=== PATIENT | female | born 1960 | race Caucasian/White ===

== ENCOUNTER 2019-03-12 15:14 | Inpatient (IN) | payer BC ==
[~2019-03-12] VITALS: Ht 165.1 cm; Wt 63.0 kg
[~2019-03-12 15:14] MED LIST: CIPROFLOXACIN500 M2 ORAL; RELPAX40 MG PO
[2019-03-13] VITALS (36 sets, daily range): BP systolic 94–149; BP diastolic 54–92
--- NOTE | 2019-03-13 01:50 | NUR ---
NURSE NOTES: Received report and pt from the charge nurse MARLEE Garcia. Pt's direct admit to ICU from [facility], here to f/up with Dr. Jaime. Pt had abdominal pain, s/[place] landa [place] [address] Jaime. Pt's AOx4. Denies any other concerns/complaints at this time. In no acute distress, Afebrile. Noted Afib on monitor technician. Hr 106, BP 110/84, R16, SpO2 97% on RA. Pt refused hx of afib or cardiac problems. NGT left nare connected to low continuous suction, draining brown gastric content. NPO at this time. Bilateral chest clear. Abdomen soft, minimal tenderness, noted RLQ ileostomy stoma red, no discharge. No hannah noted. Left AC 20G intact, clamped at this time. HOB kept elevated. Bed in low and locked position. Paged for orders, awaiting for call back. Will continue to monitor.
--- NOTE | 2019-03-13 02:10 | NUR ---
NURSE NOTES: Pt's resting in bed, in no acute distress, stable VS. Dr Jaime called back for orders, all noted and carried out. Will continue to monitor.
--- NOTE | 2019-03-13 04:00 | NUR ---
NURSE NOTES: Pt's resting in bed, in no acute distress. VS stable. Asleep. Will continue to monitor.
[2019-03-13] MEDS ORDERED: DiphenhydrAMINE 50mg/ml Inj IVP PRN (04:30)
[2019-03-13] MEDS ORDERED: SUMAtriptan 100mg tab ORAL PRN (04:30)
[2019-03-13 05:18] LABS: HEMATOCRIT 42.6 % (37.0-47.0); HEMOGLOBIN 14.3 G/DL (12.0-16.0); MEAN CORPUSCULAR VOLUME 92 FL (80-99); PLATELET COUNT 211 K/UL (150-450); RED BLOOD COUNT 4.65 M/UL (4.20-5.40); RED CELL DISTRIBUTION WIDTH 11.2 % (11.6-14.8); WHITE BLOOD COUNT 9.6 K/UL (4.8-10.8)
[2019-03-13] MEDS: D5 1/2NS w/KCl 20mEq 1,000 ML IV SCH ×2 (05:22→14:55)
[2019-03-13 05:36] LABS: INR 1.1 (0.9-1.1)
[2019-03-13 05:50] LABS: ALANINE AMINOTRANSFERASE 57 U/L (12-78); ALBUMIN 3.1 G/DL (3.4-5.0); ALBUMIN/GLOBULIN RATIO 0.8 (1.0-2.7); ALKALINE PHOSPHATASE 73 U/L (46-116); ANION GAP 4 mmol/L (5-15); ASPARTATE AMINO TRANSFERASE 30 U/L (15-37); BILIRUBIN,TOTAL 0.7 MG/DL (0.2-1.0); BLOOD UREA NITROGEN 7 mg/dL (7-18); CARBON DIOXIDE 31 MMOL/L (21-32); CHLORIDE 105 MMOL/L (98-107); CREATININE 0.7 MG/DL (0.55-1.30); POTASSIUM 3.5 MMOL/L (3.5-5.1); SODIUM 140 MMOL/L (136-145)
--- NOTE | 2019-03-13 06:53 | General Progress Note ---
Progress Note Progress Note H&P to be dictated. Patient with past history of Ulcerative Colitis has previously undergone proctocolectomy and Kock pouch, with revision here in 2014. ON 03/09 she ate apples and pecans and on 03/10 had bowel obstruction. Admitted to [facility] and treated with NG tube. Her cramping has resolved but very little output when she intubates her Kock pouch Afebrile Abdomen soft, only slightly distended, mild left sided tenderness ( she has had pain there intermittently for 1 year), no guarding or rebound Labs all satisfactory except albumin 3.1 EKG - afib with rapid response - no prior history per patient or from [facility] I inserted a 28 Awan into Kock pouch to continuous gravity drainage - small amount enteric fluid present Imp. 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 Temple called discussed with him Defer Kock Pouch Pouchogram XRay until afib dealt with No indication for acute surgical intervention at this time Mykel Jaime MD Mar 13, 2019 06:53
[2019-03-13] MEDS ORDERED: Digoxin 0.5mg/2ml Inj IVP ONE ×3 (07:00→10:00)
--- NOTE | 2019-03-13 07:00 | NUR ---
NURSE NOTES: Dr. Jaime at the bed side and inserted the cath for the landa pouch. Draining by gravity. Pt's stable condition. Will continue to monitor.
[2019-03-13] MEDS ORDERED: Heparin1,000 units/500ml Premix(Conc:2 units/ml) IV ONE (07:15)
[2019-03-13] MEDS ORDERED: Heparin 5000 units/ml inj IV ONE (07:15)
--- NOTE | 2019-03-13 07:20 | NUR ---
NURSE NOTES: Pt received from MARLEE Garcia in stable condition without cardiopulmonary distress noted. Pt is awake in bed, AAOx4 on RA spO2 98-99%, PERRLA +, obeys commands and opens eyes spontaneously. Pt noted Afib on rail director with HR 95-110 bpm, denies CP or SOB at this time. Bilateral radial pulses and dorsalis pedis palpable 2+ cap refill< 3 sec. Pt is currently NPO with NGT noted in Left nare to intermediate-high intermittent suction. Pt has a BCIR pouch noted in right lower abd quadrant connected to drainage bag by gravity draining dark green liquid stool. The stoma appears red without notable drainage at this time, covered with gauze. Bowel sounds active on all quadrants. Pt states she will use call light for bedpan when she feels the urge to void- no urine noted at this time. Skin is intact, small (7 cm) abd scar noted from previous peoctocolectomy-kock pouch revision surgery. Pt has a LAC 20g IV running D5 1/2 NS w/ 20 mEQ KCL at 100cc/hr. Bed is in lowest position, alarm on, side rails up x 2, call light within reach. Will continue to monitor pt.
--- NOTE | 2019-03-13 07:20 | NUR ---
HAND-OFF: Report given to MARLEE Smith.
[2019-03-13] MEDS ORDERED: Heparin 25,000u/D5W 500ml 500 ML IV SCH ×3 (07:30→17:30)
[2019-03-13] MEDS: SUMAtriptan 6mg/0.5ml Inj SUBQ PRN (08:05)
--- NOTE | 2019-03-13 09:15 | NUR ---
NURSE NOTES: LFA IV noted leaking. Multiple attempts to start a new IV. Addendum: 03/13/19 at 1014 by Sarah Shin RN Amendment: OMKAR not LFA
--- NOTE | 2019-03-13 09:38 | NUR ---
NURSE NOTES: New IV started in RFA 20g. Heparin drip initiated.
[2019-03-13] MEDS: Pantoprazole Inj IVP SCH (09:40)
--- NOTE | 2019-03-13 10:20 | NUR ---
NURSE NOTES: at bedside w/pt. Pt in no acute distress. Pt remains in Afib on monitor car operator with rate of 93. Denies CP or palpitations at this time.
--- NOTE | 2019-03-13 11:25 | NUR ---
NURSE NOTES: Pt assisted with bedpan, voided 400cc of light lorraine urine with strong odor.
--- NOTE | 2019-03-13 11:50 | NUR ---
NURSE NOTES: Dr Temple at bedside assessing pt.
--- NOTE | 2019-03-13 12:30 | NUR ---
NURSE NOTES: New 24g IV started in RFA, awaiting KCL and amiodarone drip from pharmacy.
[2019-03-13] MEDS ORDERED: Amiodarone 900 MG in D5W 500ml 482 ML IV SCH ×4 (13:00)
--- NOTE | 2019-03-13 14:40 | NUR ---
NURSE NOTES: Pt now in SR.
--- NOTE | 2019-03-13 14:45 | NUR ---
NURSE NOTES: Dr Maldonado at bedside assessing pt.
--- NOTE | 2019-03-13 14:53 | Critical Care Progress Note ---
Assessment/Plan Status: stable Status Narrative 1. H/O UC- s/p colectomy 2. s/p revision of Kock Pouch 2015 3.Hypokalemia 4. New onset A. Fib - ? etio - r/o due to stress, pain, dehydration, hyperthyroidism Assessment/Plan Continue IV fluids Replete K level Heparin drip in view of A. Fib Add Amiodarone drip to help convert to Sinus NPO/ NGT to suction Check Troponin levels TSH, T4. Echo done. Discussed with Patient, Dr. Jaime and RN. Critical Care - Subjective Interval Events: Patient transferred from outside facility to [facility] ICU for SBO. Admission EKG shows A. Fib. Patient denies CP, SOB, h/o CAD. EKG from 03/10 shows NSR, WNL. ROS Limited/Unobtainable: No Condition: improving, stable IV Access: peripheral EKG Rhythm: Atrial Fibrillation IV Fluids: D5 1/2 NS with KCl I&O: Intake and Output 03/12/19 03/13/19 19:00 07:00 Intake Total 163.33 ml Output Total 50 ml Balance 113.33 ml Intake IV Total 163.33 ml Output Urine Total 0 ml Gastric Drainage Total 50 ml Critical Care - Objective Last 24 Hour Vital Signs Date Time Temp Pulse Resp B/P (MAP) Pulse Ox O2 Delivery O2 Flow Rate FiO2 03/13/19 14:00 95 21 137/92 (107) 100 03/13/19 13:00 106 19 123/85 (98) 98 03/13/19 12:00 170 03/13/19 12:00 Room Air Room Air Room Air 03/13/19 12:00 98.4 110 18 122/86 (98) 98 03/13/19 11:00 93 21 126/80 (95) 98 03/13/19 10:00 97 19 117/81 (93) 96 03/13/19 09:48 100 03/13/19 09:00 104 14 149/76 (100) 96 03/13/19 09:00 104 14 149/76 (100) 96 03/13/19 08:03 112 03/13/19 08:00 104 12 107/76 (86) 96 03/13/19 08:00 Room Air Room Air Room Air 03/13/19 08:00 98.3 104 12 107/76 (86) 96 03/13/19 08:00 102 03/13/19 07:00 98 20 107/77 (87) 99 03/13/19 07:00 109 20 107/77 (87) 97 03/13/19 06:00 93 20 94/54 (67) 97 03/13/19 06:00 93 20 94/54 (67) 97 03/13/19 05:00 109 22 103/73 (83) 97 03/13/19 05:00 109 22 103/73 (83) 97 03/13/19 04:24 103 17 101/76 (84) 97 03/13/19 04:00 108 03/13/19 04:00 98.6 112 16 101/76 (84) 97 03/13/19 04:00 Room Air 03/13/19 04:00 107 16 96 03/13/19 03:00 104 16 100/68 (79) 97 03/13/19 03:00 113 15 100/68 (79) 97 03/13/19 02:00 105 20 113/76 (88) 97 03/13/19 02:00 110 18 113/76 (88) 97 03/13/19 02:00 Room Air 03/13/19 01:20 98.6 120 20 110/84 (93) 97 03/13/19 01:15 120 03/13/19 01:05 125 15 110/84 (93) Status: awake, alert Condition: stable Neck: full ROM Lungs: clear Heart: tachycardia, irregularly irregular Abdomen: soft, non-tender Extremities: no C/C/E Alberto Temple MD Mar 13, 2019 14:53
[2019-03-13] MEDS ORDERED: NS 275ml ONE (15:05)
[2019-03-13] MEDS ORDERED: Tubing IV Secondary IV ONE (15:05)
--- NOTE | 2019-03-13 15:25 | NUR ---
NURSE NOTES: BCIR ostomy dressing changed, pt gown changed.
--- NOTE | 2019-03-13 15:39 | Diagnostic Imaging Report ---
Indication: Status post continent ileostomy, abdominal pain Technique: Supine view of the abdomen Comparison: 06/07/2014 Findings: Previously demonstrated skin sandra are no longer evident. Surgical sandra in the pelvis are consistent with known history of continent ileostomy. A single mildly dilated gas-filled small bowel loop is seen in the left side of the abdomen. There is a nasogastric tube in good position. No masses or unusual calcifications. There is what may be a contrast-filled gallbladder in the expected location. Impression: Single dilated loop of small bowel in the left mid abdomen. This is nonspecific, may represent a focal area of ileus or could indicate early small bowel obstruction. Recommend follow-up radiographs as indicated
--- NOTE | 2019-03-13 16:11 | NUR ---
*-* INSURANCE *-* ALL AVAILABLE CLINICALS HAVE BEEN FAXED TO: Behzad Aparna Ref# [id number] #[phone] fax#[phone] Addendum: 03/13/19 at 1616 by ERNA BELCHER [facility]#[phone] fax#[phone]
--- NOTE | 2019-03-13 17:19 | NUR ---
NURSE NOTES: Spoke to Alex from pharmacy to let him know PTT came back 51. Awaiting orders and new label from pharmacy. No signs of bleeding or bruising noted for pt at this time.
[2019-03-13] MEDS ORDERED: Heparin 5000 units/ml inj IV SCH (17:30)
[2019-03-13] MEDS: Ketorolac 30mg Inj IV PRN ×2 (17:43→23:32)
--- NOTE | 2019-03-13 18:20 | NUR ---
NURSE NOTES: 12 lead EKG performed. Pt is in SR. Will continue to monitor.
--- NOTE | 2019-03-13 19:28 | NUR ---
NURSE NOTES: approximately 32 min remaining until amiodarone drip to be titrated down to 0.5 mg/min. Endorsed to MARLEE Dumont.
--- NOTE | 2019-03-13 19:30 | NUR ---
NURSE NOTES Received pt in no acute distress, awake, alert, orientedx4; currently denies any pain, denies headache, denies SOB. On bed prefers to have the room dark. Afebrile, ST/SR on the monitor, on RA saturating 100%. Abdomen soft with hypoactive boewel sounds. Abdominal dressing clean, dry and intact.Pt has an NGT to left nare connected to med intermittent suction draining dark greenish brown gastric material. Ileostomy connected to catheter bag draining dark green output. Skin awrm dry and intact. PIV sites patent; Amiodorone gtt infuses at 0.5mg/min and Heparin gtt at 20nits/kg/h. No bleeding noted. Plan of care explained, will continue to monitor for any signs of bleeding; continue to monitor VS and HR.
--- NOTE | 2019-03-13 19:32 | NUR ---
HAND-OFF: Report given to MARLEE Connell (Ernie). Pt remains in stable condition and still in SR on panel monitor.
--- NOTE | 2019-03-13 22:00 | NUR ---
NURSE NOTES: c/o pain and tenderness on Left AC pt claims that its from the previous IV site. Area tender and reddish. Applied warm compress over it.
--- NOTE | 2019-03-13 23:30 | NUR ---
NURSE NOTES: c/o headache 10/21. Afebrile. Toradol 15mg IVP given
[2019-03-14] VITALS (30 sets, daily range): BP systolic 100–146; BP diastolic 54–78
--- NOTE | 2019-03-14 | NUR ---
NURSE NOTES: Afebrile. Continues on NSR, BP stable. Amiodorone gtt continues at 0.5mg/min. Headache a little better as claimed. Denies abd pain, denies nausea/vomiting
[2019-03-14] MEDS: D5 1/2NS w/KCl 20mEq 1,000 ML IV SCH ×2 (00:37→10:02)
[2019-03-14] MEDS ORDERED: Heparin 25,000u/D5W 500ml 500 ML IV SCH ×2 (01:15→14:00)
--- NOTE | 2019-03-14 01:30 | NUR ---
NURSE NOTES: Heparin gtt rate changed to 17units/kg/h for PTT 124 per protocol. Next PTT at 0730.
--- NOTE | 2019-03-14 03:30 | History and Physical Report ---
EMERGENCY ADMISSION HISTORY AND PHYSICAL HISTORY OF PRESENT ILLNESS: The patient admitted as transfer from [facility] as a direct admission to our intensive care unit with bowel obstruction and history of Kock pouch continent ileostomy. The patient has a past history of ulcerative colitis and in 1979, she underwent proctocolectomy with conventional Eneida ileostomy and in 1980 conversion to a Kock pouch continent ileostomy. I operated on the patient in 2014, performing a complex revision of her Kock pouch with creation of a new valve and stoma. She did very well since then with no problems with her pouch. However, on March 09, she ate apples and nuts and the next day had cramping pain, severe nausea, signs and symptoms of bowel obstruction. She states that for one year she has been having intermittent pain in the left lower quadrant. She was admitted to [facility] and was almost about to have surgery when it was decided to manage her with nasogastric tube non-operatively. Since that time, she has had improvement, but not resolution and request was made to transfer here because of our expertise here with Kock pouch continent ileostomy. The patient was directly admitted to the intensive care unit and found to be in atrial fibrillation with rapid ventricular response. She had previously been in sinus rhythm. She feels hemodynamically stable. PAST MEDICAL HISTORY: The patient has a history of prior spine surgery, history of migraines. PHYSICAL EXAMINATION: GENERAL: She is well developed and well nourished, in no acute distress with nasogastric tube in place. HEENT: Within normal limits. LUNGS: Clear. HEART: Irregular rhythm. BREASTS: Without masses. ABDOMEN: Soft, only slight distention. There is no significant tenderness. No guarding or rebound. Well-healed midline scar. The stoma of her Kock pouch is low in the right lower quadrant. There is no evidence of abdominal wall or inguinal hernia. PELVIC: Deferred. RECTAL: Status post proctectomy. EXTREMITIES: Without edema. NEUROLOGIC: Physiologic. IMPRESSION: 1. Small bowel obstruction, resolving with conservative management. 2. Acute onset atrial fibrillation with rapid ventricular response. 3. History of ulcerative colitis. 4. STATUS POST MULTIPLE ABDOMINAL OPERATIONS: 4.1. Proctocolectomy and Eneida ileostomy in 1979. 4.2. Kock pouch in 1980. 4.3. Complex revision of Kock pouch with creation of new valve and stoma. 4.4. Aspiration of right hydrosalpinx in 2015 . DISCUSSION: I have called Dr. Alberto Temple, of Cardiology to urgently consult on the patient to manage her new onset atrial fibrillation. I inserted a 28-Slovenian Awan catheter into her Kock pouch, secured it with tape, covered the stoma with a dressing and connected to continuous gravity drainage. Some stool material does come out. Hopefully, her obstruction is going to resolve completely without surgical intervention. She will then need evaluation with a pouchogram x-ray with retrograde small bowel series and a pouch endoscopy to determine if there was a stricture where the afferent bowel joins the pouch or further proximally that could require surgical intervention. The patient is stable at this time, will be NPO with IV fluids. Strict intake and output. Mykel Jaime M.D. DR: KENNEDI JOB#: [id number] CC:
--- NOTE | 2019-03-14 04:00 | NUR ---
NURSE NOTES: Asleep on rounds but wakes up easily on approach. Denies pain. Denies SOB. Remains on NSR, BP stable. Temp 98.6. Amiodorone gtt continues at 0.5mg/min; Heparin gtt at 17units/kg/h. Ileostomy drainage dark green. Abd dressing dry and intact. Continue to monitor
[2019-03-14] MEDS: Ketorolac 30mg Inj IV PRN ×2 (05:50→17:05)
--- NOTE | 2019-03-14 06:30 | NUR ---
NURSE NOTES: Dr Jaime called and updated on pt's condition. Ordered to pull out NGT can have po meds with sips of water only.
--- NOTE | 2019-03-14 07:16 | NUR ---
HAND-OFF: Report given to Sarah WHALEN.
--- NOTE | 2019-03-14 07:16 | NUR ---
NURSE NOTES: Pt received from MARLEE Connell in stable condition without cardiopulmonary distress noted. Pt is awake in bed, AAOx4 on RA spO2 99%, PERRLA +, obeys commands and opens eyes spontaneously. Pt noted SR on foster care case manager with HR 70-80 bpm, denies CP or SOB at this time. Bilateral radial pulses and dorsalis pedis palpable 2+ cap refill< 3 sec. Pt is currently NPO. Pt has a BCIR pouch noted in right lower abd quadrant connected to drainage bag by gravity draining dark green liquid stool. The stoma appears red without notable drainage at this time, covered with gauze. Bowel sounds active on all quadrants. Pt states she will use call light for bedpan when she feels the urge to void- no urine noted at this time. Skin is intact, small (7 cm) abd scar noted from previous peoctocolectomy-BCIR revision surgery. Pt's LAC area is noted with mild swelling and redness. warm compress placed over area. Pt has a RFA 24g IV and 20g IV running D5 1/2 NS w/ 20 mEQ KCL at 100cc/hr and heparin drip at 17 units/kg.hr and amiodarone at 16.66 cc/hr . Bed is in lowest position, alarm on, side rails up x 2, call light within reach. Will continue to monitor pt.
[2019-03-14] MEDS: Pantoprazole Inj IVP SCH (08:59)
[2019-03-14 09:07] LABS: BASOPHILS % (AUTO) 0.3 % (0.0-2.0); EOSINOPHILS % (AUTO) 0.3 % (0.0-3.0); HEMATOCRIT 37.5 % (37.0-47.0); HEMOGLOBIN 12.8 G/DL (12.0-16.0); LYMPHOCYTES % (AUTO) 11.8 % (20.0-45.0); MEAN CORPUSCULAR VOLUME 91 FL (80-99); MONOCYTES % (AUTO) 8.3 % (1.0-10.0); NEUTROPHILS % (AUTO) 79.3 % (45.0-75.0); PLATELET COUNT 153 K/UL (150-450); RED BLOOD COUNT 4.13 M/UL (4.20-5.40); WHITE BLOOD COUNT 9.8 K/UL (4.8-10.8)
[2019-03-14 09:14] LABS: ANION GAP 8 mmol/L (5-15); BLOOD UREA NITROGEN 7 mg/dL (7-18); CALCIUM 8.6 MG/DL (8.5-10.1); CARBON DIOXIDE 27 MMOL/L (21-32); CHLORIDE 108 MMOL/L (98-107); CREATININE 0.7 MG/DL (0.55-1.30); POTASSIUM 3.7 MMOL/L (3.5-5.1); SODIUM 143 MMOL/L (136-145)
--- NOTE | 2019-03-14 09:37 | NUR ---
NURSE NOTES: Spoke with Raquel from pharmacy, PTT 87, pt to remain on same heparin rate, PTT to be drawn tomorrow at 0400 with routine labs. Will continue to monitor. pt. Awaiting new heparin label from pharmacy.
[2019-03-14] MEDS: Heparin 25,000u/D5W 500ml 500 ML IV SCH ×2 (09:59→10:46)
[2019-03-14] MEDS: SUMAtriptan 6mg/0.5ml Inj SUBQ PRN (10:02)
--- NOTE | 2019-03-14 10:45 | General Progress Note ---
Progress Note Progress Note AVSS back in sinus rhythm. Very little NG output and Kock pouch 880cc so NG removed Abdomen still mildly distended, soft, non-tender KUB XRay 03/13 - one dilated loop of small bowel Imp. SBO likely abelardo blockage, resolving - R/O stricture of bowel Plan; Trial of ensure clear maintain continuous drainage of Kock pouch continent ileostomy Kock Pouch Pouchogram XRay with retrograde small bowel series in AM ambulate in room Mykel Jaime MD Mar 14, 2019 10:45
--- NOTE | 2019-03-14 12:29 | NUR ---
NURSE NOTES: Spoke to Dr Temple regarding Cardiology standpoint of patient. Patient is in NSR, and has order to begin Ensure clear. Per MD can transition to PO Amio 200 mg BID, will remain on Heparin gtt x 1 more day and patient will transfer to Tele with both Dr Temple and Dr Jaime's approval. Will prepare for patient's transfer. manufacturing supervisor has been contacted.
[2019-03-14] MEDS ORDERED: Amiodarone 200mg tab ORAL SCH (12:30)
--- NOTE | 2019-03-14 12:50 | NUR ---
NURSE NOTES: Per Dr. Jaime, pt to have Ensure clear up to three times per day as tolerated. 1 Ensure given, no s/s of N/V at this time. Will continue to monitor.
--- NOTE | 2019-03-14 13:45 | NUR ---
TRANSFER TO FLOOR: Patient transferred to [facility], per Dr Jaime. Report given to MARLEE Gillis. Belongings and medications given to Elis. Family aware of transfer. Pt remains in stable condition with SR noted on steak sauce maker.
[2019-03-14] MEDS ORDERED: DiphenhydrAMINE 50mg/ml Inj IVP PRN (14:00)
[2019-03-14] MEDS ORDERED: D5 1/2NS w/KCl 20mEq 1,000 ML IV SCH (14:00)
[2019-03-14] MEDS ORDERED: SUMAtriptan 6mg/0.5ml Inj SUBQ PRN (14:00)
--- NOTE | 2019-03-14 16:19 | Cardiology Progress Note ---
Assessment/Plan Status Narrative 1. UC- s/p colectomy 2. SBO- resolving 3. A. Fib- now in NSR on Amiodarone Assessment/Plan DC Amiodarone drip --> PO continue heparin drip for another 24 hours Transfer to Telemetry Advance diet as per Dr. Jaime Ambulate Assuming that A. Fib was due to stress of the events leading to hospitalization , I would suggest continuing Amiodarone for 1 month and then consider DC as out patient. Subjective Cardiovascular: Reports: no symptoms; Denies: chest pain Respiratory: Reports: no symptoms; Denies: shortness of breath Genitourinary: Reports: no symptoms Subjective 03/13/19- Converted to NSR after Amio drip 03/14/19 Feeling better. On heparin drip and Amio drip. NGT dc'd-started on liquids Objective Last 24 Hour Vital Signs Date Time Temp Pulse Resp B/P (MAP) Pulse Ox O2 Delivery O2 Flow Rate FiO2 03/14/19 13:30 89 18 119/74 (89) 99 03/14/19 13:00 86 17 128/73 (91) 99 03/14/19 12:30 71 19 122/66 (84) 98 03/14/19 12:00 73 03/14/19 12:00 Room Air Room Air Room Air 03/14/19 12:00 97.7 71 19 119/66 (83) 98 03/14/19 11:30 80 18 126/71 (89) 99 03/14/19 11:00 84 20 130/76 (94) 99 03/14/19 10:30 68 15 146/77 (100) 100 03/14/19 10:00 81 15 121/76 (91) 98 03/14/19 09:30 79 14 118/77 (91) 98 03/14/19 09:00 78 18 119/64 (82) 100 03/14/19 08:30 80 15 110/60 (77) 99 03/14/19 08:00 Room Air Room Air Room Air 03/14/19 08:00 75 03/14/19 08:00 97.7 67 16 122/75 (91) 98 03/14/19 07:30 74 16 116/73 (87) 97 03/14/19 07:00 79 15 104/59 (74) 98 03/14/19 06:30 78 22 102/65 (77) 97 03/14/19 06:00 79 17 100/54 (69) 96 03/14/19 05:30 83 16 123/77 (92) 97 03/14/19 05:00 78 18 114/75 (88) 98 03/14/19 04:30 88 17 118/65 (82) 99 03/14/19 04:00 98.6 74 17 115/66 (82) 97 03/14/19 04:00 Room Air Room Air Room Air 03/14/19 04:00 71 03/14/19 03:30 72 16 116/66 (83) 97 03/14/19 03:00 93 28 106/74 (85) 89 03/14/19 02:30 78 17 108/55 (72) 99 03/14/19 02:00 76 7 118/71 (87) 97 03/14/19 01:30 70 18 118/71 (87) 98 03/14/19 01:00 73 16 115/66 (82) 98 03/14/19 00:30 72 19 117/70 (86) 98 03/14/19 00:00 Room Air Room Air Room Air 03/14/19 00:00 71 03/14/19 00:00 97.8 71 18 120/64 (82) 97 03/13/19 23:30 94 22 129/75 (93) 99 03/13/19 23:00 80 18 125/66 (85) 96 03/13/19 22:30 92 20 126/75 (92) 99 03/13/19 22:00 82 18 117/71 (86) 96 03/13/19 21:30 81 20 116/65 (82) 98 03/13/19 21:00 78 18 116/67 (83) 97 03/13/19 20:30 76 17 116/71 (86) 98 03/13/19 20:00 103 03/13/19 20:00 97.5 103 18 124/67 (86) 99 03/13/19 20:00 Room Air Room Air Room Air 03/13/19 19:30 90 10 112/67 (82) 97 03/13/19 19:00 88 11 118/78 (91) 97 03/13/19 18:30 85 16 116/68 (84) 96 03/13/19 18:00 87 18 100/86 (91) 100 03/13/19 17:30 99 12 121/70 (87) 99 03/13/19 17:00 88 20 115/69 (84) 97 03/13/19 16:30 92 17 118/72 (87) 98 Rhythm: NSR Cardiovascular: normal rate, regular rhythm Respiratory/Chest: lungs clear Abdomen: non tender, soft, no organomegaly, no mass, hypoactive bowel sounds Extremities: non-tender, no calf tenderness, no swelling Intake and Output 03/13/19 03/14/19 18:59 06:59 Intake Total 1749.32062 ml 1646.688 ml Output Total 1330 ml 800 ml Balance 419.73886 ml 846.688 ml Intake Oral 0 ml IV Total 1729.81372 ml 1606.688 ml Other 20 ml 40 ml Output Urine Total 700 ml 350 ml Stool Total 440 ml 400 ml Gastric Drainage Total 190 ml 50 ml Laboratory Tests Test 03/13/19 23:35 03/14/19 07:30 Activated Partial Thromboplast Time 124 SEC (23-33) H 87 SEC (23-33) H White Blood Count 9.8 K/UL (4.8-10.8) Red Blood Count 4.13 M/UL (4.20-5.40) L Hemoglobin 12.8 G/DL (12.0-16.0) Hematocrit 37.5 % (37.0-47.0) Mean Corpuscular Volume 91 FL (80-99) Mean Corpuscular Hemoglobin 31.0 PG (27.0-31.0) Mean Corpuscular Hemoglobin Concent 34.2 G/DL (32.0-36.0) Red Cell Distribution Width 11.0 % (11.6-14.8) L Platelet Count 153 K/UL (150-450) Mean Platelet Volume 5.6 FL (6.5-10.1) L Neutrophils (%) (Auto) 79.3 % (45.0-75.0) H Lymphocytes (%) (Auto) 11.8 % (20.0-45.0) L Monocytes (%) (Auto) 8.3 % (1.0-10.0) Eosinophils (%) (Auto) 0.3 % (0.0-3.0) Basophils (%) (Auto) 0.3 % (0.0-2.0) Sodium Level 143 MMOL/L (136-145) Potassium Level 3.7 MMOL/L (3.5-5.1) Chloride Level 108 MMOL/L (98-107) H Carbon Dioxide Level 27 MMOL/L (21-32) Anion Gap 8 mmol/L (5-15) Blood Urea Nitrogen 7 mg/dL (7-18) Creatinine 0.7 MG/DL (0.55-1.30) Estimat Glomerular Filtration Rate > 60 mL/min (>60) Glucose Level 113 MG/DL (74-106) H Calcium Level 8.6 MG/DL (8.5-10.1) Alberto Temple MD Mar 14, 2019 16:19
--- NOTE | 2019-03-14 19:37 | NUR ---
HAND-OFF: Report given to lissy flores.
--- NOTE | 2019-03-14 19:38 | NUR ---
NURSE NOTES: Received from MARLEE Gillis. Pt is in no acute distress, awake, alert and orientedx4. Pt currently denies any abdominal pain but notes headache, Imitrex administered to pt. Pt denies SOB, remains Afebrile, SR on the monitor (87), on RA saturating 98%. Abdominal dressing was moist and soiled. Dressing changed. Ileostomy connected to catheter bag draining dark green/brown output. Skin remains intact, infiltrated IV site from admission at a different facility noted on the left FA. Right FA 24g and Right FA 20g IV catheters remain asymptomatic, patent and intact; Heparin currently infusing at 17units/kg/hr and D5 1/2 NS +40KCL currently infusing at 100mL/hr. No signs of bleeding noted. Will continue plan of care. Will continue to monitor.
[2019-03-14] MEDS: Amiodarone 200mg tab ORAL SCH (20:13)
[2019-03-14] MEDS: D5 1/2NS w/KCl 40meq 1000ml 1,000 ML IV SCH (20:13)
--- NOTE | 2019-03-14 21:00 | NUR ---
NURSE NOTES: Toradol pulled from Pyxis early and then wasted with charge nurse. Confirmed with pharmacy no additional steps needed at this time.
--- NOTE | 2019-03-14 22:00 | NUR ---
NURSE NOTES: Pt BCIR flushed with 20mL per order with no discomfort noted. Pt voided 200mL of urine and ambulated well to the bathroom. Pt VS remains stable and Cordarone administered per order. Pt provided with bed bath, oral care and linen change.Pt continues resting in bed, bed is in lowest position with safety wheels engaged, bed alarm activated, call light within reach and side rails up x2. Will continue to monitor.
[2019-03-15] VITALS: BP 123/78
--- NOTE | 2019-03-15 02:00 | NUR ---
NURSE NOTES: Pt ileostomy flushed per order with no discomfort noted. Pt voided 200mL of urine and ambulated well to the bathroom. Pt VS remains stable and pt denies pain at this time. Pt continues resting in bed, bed is in lowest position with safety wheels engaged, bed alarm activated, call light within reach and side rails up x2. Will continue to monitor.
[2019-03-15 04:00] VITALS: BP 118/76
--- NOTE | 2019-03-15 04:00 | NUR ---
NURSE NOTES: Pt complains of migraine pain 9 and requests pain medication. Toradol administered per order. VS remains stable. Will reassess pt. Will continue to monitor.
[2019-03-15] MEDS: Ketorolac 30mg Inj IV PRN (04:14)
--- NOTE | 2019-03-15 04:55 | NUR ---
NURSE NOTES: Notified pipeline of ptt results and requested new lab label. Paused Heparin per order. No signs of bleeding noted. Will restart Heparin in 30 minutes at 14units/kg/hr as ordered. Will continue to monitor.
--- NOTE | 2019-03-15 05:25 | NUR ---
NURSE NOTES: Restarted Heparin drip at 14units/kg/hr as ordered. Unable to scan label due to printer not working. Will call pharmacy when open. No signs of bleeding noted. New ptt ordered in 6 hrs. Will continue to monitor.
[2019-03-15] MEDS ORDERED: Heparin 25,000u/D5W 500ml 500 ML IV SCH (05:45)
[2019-03-15] MEDS: D5 1/2NS w/KCl 40meq 1000ml 1,000 ML IV SCH ×2 (06:06→16:26)
--- NOTE | 2019-03-15 07:21 | NUR ---
HAND-OFF: Report given to MARLEE Kelsey. Pt remains stable at this time.
--- NOTE | 2019-03-15 07:22 | NUR ---
NURSE NOTES: Received report from MARLEE Calvillo. Observed patient in bed, awake, alert, verbally responsive. On room air, no acute respiratory distress noted. Patient is currently NPO at this time as ordered. IV on right FA intact and patent with IV fluids infusing at prescribed rate, Heparin drip infusing. Right ileostomy noted with intact dressing and draining well to gravity. Patient denies pain/discomfort at this time. Safety precautions in place; bed locked, alarmed, and in lowest position, side rails up x2, and call light left within reach. Instructed patient to call for assistance, verbalized understanding. Addendum: 03/15/19 at 0754 by Laure Blake RN Will continue plan of care and will continue to monitor patient.
[2019-03-15 08:00] VITALS: BP 118/76
[2019-03-15] MEDS: Amiodarone 200mg tab ORAL SCH ×2 (08:22→20:18)
[2019-03-15] MEDS ORDERED: Pantoprazole Inj IVP SCH (09:00)
--- NOTE | 2019-03-15 11:12 | NUR ---
CASE MANAGEMENT: INITIAL REVIEW 58YR OLD FEMALE DIRECT ADMIT FROM [facility] CC: BOWEL OBSTRUCTION SI: SMALL BOWEL OBSTRUCTION . ACUTE ONSET ATRIAL FIBRILLATION 98.6 120 20 110/84 97% ON RA PTT 51 IS:KCL X2 IV AMIODARONE X1 GTT HEPARIN IV D5 @100ML/HR IV PROTONIX QD \: 2W STEP DOWN UNIT DCP: HOME WHEN MEDICALLY STABLE PLAN: TRANSFER TO TELE NG SUCTION KOCK POUCH CONT DRAINAGE CARDIO CONSULT NO SURG AT THIS TIME
--- NOTE | 2019-03-15 11:20 | NUR ---
NURSE NOTES: escort patient to procedure room-radiology for kock Pouch Pouchogram with threat monitoring analyst-sinus rythm 67 to 78,no complaints,headache better [address] Temple,patient on heparin drip,stated informed her heparin will be discontinued today Dr. Temple ordered to discontinue heparin Addendum: 03/15/19 at 1127 by Carly ISSA RN 1115 heparin drip discontinued,no bleeding,no chest pain,normal sinus rythm 73 patient ambulated in room and hallway while i made her bed tolerated well
[2019-03-15 12:00] VITALS: BP 119/75
--- NOTE | 2019-03-15 12:58 | NUR ---
LINE DIRECTORDIGITAL CAMPAIGN MANAGER SI: BOWEL OBSTRUCTION,JERILYN Barber 97.9 HR 85 RR 19 B/P 118/76 RA 98% PTT 38 IS: PROTONIX IV IVF D5KCL @ 100ML/HR STEP DOWN STATUS
--- NOTE | 2019-03-15 13:41 | Cardiology Progress Note ---
Assessment/Plan Status Narrative 1. UC- s/p colectomy 2. SBO- resolving 3. A. Fib- now in NSR on Amiodarone Assessment/Plan Amiodarone 200 mg PO BID DC heparin drip since she was in A. Fib very short time and now in NSR Transfer to floor Advance diet as per Dr. Jaime Ambulate Assuming that A. Fib was due to stress of the events leading to hospitalization , I would suggest continuing Amiodarone for 1 month and then consider DC as out patient. Subjective Cardiovascular: Reports: no symptoms Respiratory: Reports: no symptoms Gastrointestinal/Abdominal: Reports: no symptoms Genitourinary: Reports: no symptoms Subjective 03/13/19- Converted to NSR after Amio drip 03/14/19 Feeling better. On heparin drip and Amio drip. NGT dc'd-started on liquids 03/15/19- feeling better, in NSR, tolerating PO liquids Objective Last 24 Hour Vital Signs Date Time Temp Pulse Resp B/P (MAP) Pulse Ox O2 Delivery O2 Flow Rate FiO2 03/15/19 12:00 Room Air Room Air Room Air 03/15/19 12:00 98.5 78 18 119/75 (90) 99 03/15/19 11:47 78 03/15/19 08:00 97.9 85 19 118/76 (90) 96 03/15/19 08:00 Room Air Room Air Room Air 03/15/19 07:19 77 03/15/19 04:44 98.2 03/15/19 04:00 98.2 82 18 118/76 (90) 98 03/15/19 04:00 Room Air Room Air Room Air 03/15/19 03:19 71 03/15/19 00:00 97.9 86 16 123/78 (93) 97 03/15/19 00:00 Room Air Room Air Room Air 03/14/19 23:12 87 03/14/19 20:00 Room Air Room Air Room Air 03/14/19 20:00 98.8 90 20 129/78 (95) 97 03/14/19 19:13 89 03/14/19 16:00 90 03/14/19 16:00 99.1 98 21 127/76 (93) 98 03/14/19 16:00 Room Air Room Air Room Air Cardiovascular: normal rate, regular rhythm, no gallop/murmur Respiratory/Chest: lungs clear Abdomen: normal bowel sounds, non tender, soft, no organomegaly, no mass Extremities: non-tender, normal inspection, no calf tenderness, no swelling Intake and Output 03/14/19 03/15/19 19:00 07:00 Intake Total 583.590 ml 1845.773 ml Output Total 1100 ml 400 ml Balance -516.410 ml 1445.773 ml Intake Oral 237 ml 237 ml IV Total 306.590 ml 1548.773 ml Other 40 ml 60 ml Output Urine Total 800 ml 400 ml Stool Total 300 ml Laboratory Tests Test 03/15/19 04:05 03/15/19 12:25 Activated Partial Thromboplast Time 108 SEC (23-33) H 38 SEC (23-33) H Alberto Temple MD Mar 15, 2019 13:41
--- NOTE | 2019-03-15 14:11 | NUR ---
NURSE NOTES: Patient has been Sinus rythm,heparin discontinued,on cardiac medications,Dr. Maverick Loyola transfer to [facility],I spoke to Dr. Muse to transfer to [facility],stable,ambulating-sinus rythm
--- NOTE | 2019-03-15 14:15 | Consultation ---
DATE OF CONSULTATION: 03/13/2019 CARDIOLOGY CONSULTATION CONSULTING PHYSICIAN: Alberto Temple M.D. ATTENDING PHYSICIAN: Mykel Jaime M.D. REASON FOR CONSULTATION: New-onset atrial fibrillation. HISTORY OF PRESENT ILLNESS: The patient is a 58-year-old female with history of ulcerative colitis and prior colectomy with a Kock pouch placement or revision in 2014, who was in her usual state of health until a few days ago when she developed abdominal pain, and was admitted to [facility] in [place] where she remained for a few days. Subsequently, she was transferred to [facility] to be under the care of Dr. Jaime for her gastrointestinal problems. On arrival, an EKG showed that she was in atrial fibrillation with rapid ventricular response. However, admission EKG on the 10 of March, showed she was in normal sinus rhythm. There are no interval EKGs. The patient denies chest pain or shortness of breath and has no history of cardiac disease including cardiac arrhythmias, but notes that she has had some irregular rhythm somewhere in the past. Her father has history of atrial fibrillation. The patient was admitted to the intensive care unit for further management where she is being evaluated. PAST MEDICAL HISTORY: 1. Ulcerative colitis. 2. Status post colectomy. 3. Status post revision of Kock pouch in 2014. MEDICATIONS: Include Protonix 40 mg IV, Benadryl p.r.n., , p.r.n., Zofran p.r.n., and Imitrex for migraine headaches. ALLERGIES: None known. REVIEW OF SYSTEMS: GENERAL: Denies weight loss, fever, chills, or night sweats. HEENT: Denies headache or sinus problem. PULMONARY: Denies cough or sputum production. CARDIAC: Denies chest pain, palpitations, PND, or orthopnea. No lower extremity edema. GENITOURINARY: Denies dysuria or hematuria. MUSCULOSKELETAL: Denies arthritis or bony pain. PHYSICAL EXAMINATION: GENERAL: The patient is alert and oriented, pleasant female. VITAL SIGNS: Blood pressure was 125/75. Temperature afebrile. Heart rate is 110 in atrial fibrillation. GENERAL: NG tube is in place to intermittent suction. HEENT: Unremarkable. NECK: Supple. LUNGS: Without rales or wheezes. CARDIAC: Without S3 or S4. Jugular venous pressure is about 5 cm of water. ABDOMEN: Soft, slightly distended with mild tenderness and hyperactive bowel sounds. EXTREMITIES: Without cyanosis, clubbing, or edema. DIAGNOSTIC DATA: EKG showed atrial fibrillation with a heart rate of 112 beats per minute. LABORATORY DATA: Reviewed. Sodium is 140, potassium 3.5, BUN 7, and creatinine 0.7. Glucose 111. Liver panel is within normal limits. Albumin is 3.1. IMPRESSION: 1. Ulcerative colitis, status post colectomy. 2. Status post Kock pouch revision in 2014. 3. Small bowel obstruction. Etiology unclear. 4. Hypokalemia. 5. New-onset atrial fibrillation. Etiology unclear. Rule out due to stress versus hypokalemia or possible hyperthyroidism. PLAN AND SUGGESTIONS: The patient will be observed in ICU, has been started on intravenous heparin in view of atrial fibrillation. IV amiodarone will be given to convert to sinus rhythm. The patient is NPO and NG tube to intermittent suction. We will check troponin levels to rule out ischemia. We will check thyroid panel with TSH and T4. Echocardiogram has been performed and shows normal LV function and valvular function. There is no evidence of LV thrombus or atrial thrombus. Depending on response to amiodarone, we will make further plans. Dr. Jaime, thank you for allowing me to participate in the care of this patient and I will be happy to follow with you as necessary. Alberto Temple M.D. DR: SAADIA JOB#: [id number] CC:
[2019-03-15] MEDS ORDERED: SUMAtriptan 6mg/0.5ml Inj SUBQ PRN (14:53)
[2019-03-15] MEDS ORDERED: DiphenhydrAMINE 50mg/ml Inj IVP PRN (14:53)
--- NOTE | 2019-03-15 14:55 | NUR ---
TRANSFER TO FLOOR: Patient transferred to [facility] room 309, per Dr Jaime and Dr Temple. Report given to MARLEE Valdez. Belongings remained with patient; belongings list signed by receiving nurse. Family at bedside, aware of transfer. Patient remains in stable condition.
--- NOTE | 2019-03-15 15:00 | NUR ---
NURSE NOTES: received report from Delia WHALEN, pt a/a/o x4 laying in bed with no signs of distress or other issues at this time. Ileostomy bag draining to gravity. IV on the Right FA gauge#20 and Right FA gauge #24 running D51/2.l NS+20mE1@100ml/hr. patient able to ambulate around the room with steady gait. call light within reach, bed in lowest position, side rales up x2. family at bedside. I will f/u as needed.
--- NOTE | 2019-03-15 15:32 | General Progress Note ---
Progress Note Progress Note doing well now off heparin and telemetry. Tolerating clear liquids Abdomen soft Kock pouch ileo catheter draining well Pouchogram - 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 Imp: improved Plan: Clear liquid diet Kock pouch endoscopy in AM Mykel Jaime MD Mar 15, 2019 15:32
--- NOTE | 2019-03-15 15:34 | Diagnostic Imaging Report ---
INDICATION: Abdominal pain, suspected bowel obstruction TECHNIQUE: Water-soluble contrast injected via pre-existing Awan catheter into continent ileostomy pouch. Spot images obtained. A single overhead abdominal radiograph was performed one hour later Fluoroscopy time: 99.1 seconds Total dose: 0.90565 mGym2 Total number of images: 22 COMPARISON: None FINDINGS: There is ready filling of the ileostomy pouch. Within the pouch is completely distended, contrast refluxes readily into the distal small bowel. At the time of initial reflux, there does appear to be narrowing of the anastomosis. However, this is in constant and appears slightly larger on some of the images. Upon initial filling, the distal small bowel appears slightly dilated, but this returns to normal caliber within the pouch is decompressed. Delayed images demonstrate transit of contrast from the small bowel back into the pouch. One hour delayed image demonstrates a small amount of retained contrast within the small bowel distally, which is nondilated, and contrast within the catheter and a small amount within the pouch which is emptied. IMPRESSION: There is suggestion of narrowing of the anastomosis between the distal small bowel and continent ileostomy. However, the amount of obstruction this results in is apparently minimal if any Findings previously discussed by phone with Dr. Jaime
[2019-03-15 16:00] VITALS: BP 132/71
--- NOTE | 2019-03-15 16:00 | NUR ---
NURSE NOTES: Per patient request and MD hatch. pt ok shower. I will f/u as needed.
--- NOTE | 2019-03-15 19:22 | NUR ---
HAND-OFF: Report given to MARLEE Dunn. Pt is awake, sitting at the edge of the bed, and in stable condition. Plan of care endorsed.
--- NOTE | 2019-03-15 19:30 | NUR ---
NURSE NOTES: Pt. received from MARLEE Haskins. Pt. was seen ambulating in hallway, now in bed. AAOx4, on room air, no complaints of pain and no signs of respiratory distress at this time. IV on left FA 24g asymptomatic, intact and patent; running D5 1/2 NS 40 mEq KCl at 100cc/hr. Ileostomy draining well; dressing clean, dry, and intact. Latex allergy sign on door. Bed is low and locked, side rails x2 up, and call light is in reach. Will continue to monitor.
[2019-03-15 20:00] VITALS: BP 119/78
[2019-03-16] VITALS: BP 127/84
[2019-03-16] MEDS: Ketorolac 30mg Inj IV PRN ×2 (00:47→20:51)
[2019-03-16] MEDS: D5 1/2NS w/KCl 40meq 1000ml 1,000 ML IV SCH ×2 (00:55→11:08)
[2019-03-16 04:00] VITALS: BP 118/79
[2019-03-16 07:18] LABS: ANION GAP 6 mmol/L (5-15); BLOOD UREA NITROGEN 6 mg/dL (7-18); CALCIUM 8.7 MG/DL (8.5-10.1); CARBON DIOXIDE 27 MMOL/L (21-32); CHLORIDE 110 MMOL/L (98-107); CREATININE 0.8 MG/DL (0.55-1.30); POTASSIUM 4.4 MMOL/L (3.5-5.1); SODIUM 142 MMOL/L (136-145)
--- NOTE | 2019-03-16 07:47 | NUR ---
HAND-OFF: Report given to MARLEE Dickerson.
--- NOTE | 2019-03-16 07:48 | NUR ---
NURSE NOTES: Received patient in bed awake. No SOB or acute distress. Ileostomy intact. IV line intact. Left arm on intermittent ice packing for swelling. Instructed on NPO after breakfast for Kock pouch endoscopy at 1pm, consent in the chart. HOB elevated. Bed locked in lowest position. Call light within reach. Will continue plan of care.
[2019-03-16 08:00] VITALS: BP 137/83
[2019-03-16] MEDS: Pantoprazole Inj IVP SCH (08:39)
[2019-03-16] MEDS: Amiodarone 200mg tab ORAL SCH ×2 (08:39→20:49)
--- NOTE | 2019-03-16 10:00 | NUR ---
NURSE NOTES: Heating pad placed on left arm and kept elevated as ordered by .
--- NOTE | 2019-03-16 10:03 | Cardiology Progress Note ---
Assessment/Plan Status Narrative 1. UC- s/p colectomy 2. SBO- resolving 3. A. Fib- now in NSR on Amiodarone 4. Cellulitis of L upper ext Assessment/Plan Amiodarone 200 mg PO BID Endoscopy today Advance diet as per Dr. Jaime Ambulate Elevate L upper ext, heating pad Keflex 500 mg TID for cellulitis. Subjective Cardiovascular: Reports: no symptoms Respiratory: Reports: no symptoms Gastrointestinal/Abdominal: Reports: abdominal pain Genitourinary: Reports: no symptoms Subjective 03/13/19- Converted to NSR after Amio drip 03/14/19 Feeling better. On heparin drip and Amio drip. NGT dc'd-started on liquids 03/15/19- feeling better, in NSR, tolerating PO liquids 03/16/19- c/o L arm pain at site of IV. denies CP, SOB Objective Last 24 Hour Vital Signs Date Time Temp Pulse Resp B/P (MAP) Pulse Ox O2 Delivery O2 Flow Rate FiO2 03/16/19 09:00 Room Air Room Air Room Air 03/16/19 08:00 98.2 81 14 137/83 (101) 98 03/16/19 04:00 98.3 80 18 118/79 (92) 98 03/16/19 00:00 98.8 83 16 127/84 (98) 99 03/15/19 21:00 Room Air Room Air Room Air 03/15/19 20:00 99.4 89 16 119/78 (92) 97 03/15/19 16:00 Room Air Room Air Room Air 03/15/19 16:00 98.9 85 18 132/71 (91) 97 03/15/19 12:00 Room Air Room Air Room Air 03/15/19 12:00 98.5 78 18 119/75 (90) 99 03/15/19 11:47 78 Cardiovascular: normal rate, regular rhythm, no gallop/murmur Respiratory/Chest: lungs clear Abdomen: normal bowel sounds, soft, no organomegaly, no mass Extremities: no calf tenderness, no swelling, other - L upper ext with erythema and tenderness of the ante cubital area c/ cellulitis Intake and Output 03/15/19 03/16/19 19:00 07:00 Intake Total 1195.224 ml 1240 ml Output Total 1870 ml 1695 ml Balance -674.776 ml -455 ml Intake Oral 405 ml 240 ml IV Total 770.224 ml 1000 ml Other 20 ml Output Urine Total 1200 ml 1250 ml Other 670 ml 445 ml Laboratory Tests Test 03/15/19 12:25 03/16/19 05:10 Activated Partial Thromboplast Time 38 SEC (23-33) H Sodium Level 142 MMOL/L (136-145) Potassium Level 4.4 MMOL/L (3.5-5.1) Chloride Level 110 MMOL/L (98-107) H Carbon Dioxide Level 27 MMOL/L (21-32) Anion Gap 6 mmol/L (5-15) Blood Urea Nitrogen 6 mg/dL (7-18) L Creatinine 0.8 MG/DL (0.55-1.30) Estimat Glomerular Filtration Rate > 60 mL/min (>60) Glucose Level 104 MG/DL (74-106) Calcium Level 8.7 MG/DL (8.5-10.1) Alberto Temple MD Mar 16, 2019 10:03
--- NOTE | 2019-03-16 10:03 | NUR ---
*--* INSURANCE *-* ALL CLINICALS AND REVIEWS HAVE BEEN FAXED TO: [facility] [place]:CONY MARIN REF# [id number] P: [phone] F; [phone]
--- NOTE | 2019-03-16 10:06 | NUR ---
DISCHARGE PLANNING: SPOKE TO (AL) FROM [facility]. T: [phone] CM FOLLOWING PATIENT PLEASE KEEP INFORMED OF ANTICIPATED DISCHARGE DATE
--- NOTE | 2019-03-16 11:00 | NUR ---
NURSE NOTES: Stoma dressing changed. Stoma red, no s/s of infection.
[2019-03-16] MEDS: Cephalexin 500mg cap ORAL SCH ×2 (11:36→17:20)
[2019-03-16 12:00] VITALS: BP 130/83
--- NOTE | 2019-03-16 12:28 | Pre-Procedure Note/Attestation ---
Pre-Procedure Note/Attestation Complete Prior to Procedure Planned Procedure: not applicable Procedure Narrative: Kock pouch endoscopy Indications for Procedure Pre-Operative Diagnosis: Small bowel obstruction r/o stricture Attestation I attest that I discussed the nature of the procedure; its benefits; risks and complications; and alternatives (and the risks and benefits of such alternatives ), prior to the procedure, with the patient (or the patient's legal inbound sales representative). I attest that, if there was a reasonable possibility of needing a blood transfusion, the patient (or the patient's legal inbound sales representative) was given the [facility] standardized written summary, pursuant to the [place] Blood Safety Act ([place] Health and Safety Code # 1645, as amended). I attest that I re-evaluated the patient just prior to the surgery and that there has been no change in the patient's H&P, except as documented below:none Mykel Jaime MD Mar 16, 2019 12:28
--- NOTE | 2019-03-16 12:28 | General Progress Note ---
Progress Note Progress Note AVSS No further cramping. Abdomen soft, non-distended, Kock pouch catheter draining well Imp: SBO, resolved r/o stricture of Kock pouch afferent bowel Plan: Kock pouch endoscopy today Mykel Jaime MD Mar 16, 2019 12:28
--- NOTE | 2019-03-16 13:00 | NUR ---
NURSE NOTES: Patient taken down for Kock pouch endoscopy.
--- NOTE | 2019-03-16 13:19 | Brief Operative Note ---
Immediate Post Operative Note Operative Note Pre-op Diagnosis: Small bowel obstruction r/o stricture Procedure: Kock pouch endoscopy Post-op Diagnosis: mild stenosis afferent bowel pouch junction Post-op Diagnosis: same as pre-op Findings: consistent w/pre-op dx studies Surgeon: lor Anesthesia: other - none Specimen: none Complications: none Condition: stable Fluids: none Estimated Blood Loss: none Drains: other - 28 Awan to Kock pouch Implant(s) used?: No Mykel Jaime MD Mar 16, 2019 13:19
--- NOTE | 2019-03-16 13:20 | NUR ---
CASE MANAGEMENT: REVIEW 03/16/2019 SI: BOWEL OBSTRUCTION,BARNET 98.2 81 14 137/83 98% ON RA CL-110 BUN 6 IS: IVF D5 @ 100ML/HR KEFLEX PO Q8HR IV PROTONIX QD AMIODARONE PO BID IV TORADOL Q6HR/PRN \:TRANSFER TO MED SURG UNIT PLAN: ROMERO POUCH ENDOSCOPY TODAY
[2019-03-16] MEDS ORDERED: Ascorbic Acid 500mg tab ORAL PRN (13:30)
--- NOTE | 2019-03-16 13:30 | NUR ---
NURSE NOTES: Patient back in unit. With diet orders carried out, instructed to patient and followed up with kitchen.
[2019-03-16 16:00] VITALS: BP 135/78
--- NOTE | 2019-03-16 16:21 | NUR ---
*--* INSURANCE *-* ALL CLINICALS AND REVIEWS HAVE BEEN FAXED TO: [facility]:CONY MARIN REF# [id number] P: [phone] F; [phone]
--- NOTE | 2019-03-16 16:45 | Procedure Note ---
DATE OF PROCEDURE: 03/16/2019 ENDOSCOPY PROCEDURE REPORT ENDOSCOPIST: Mykel Jaime M.D. PROCEDURE: Endoscopy. ANESTHESIA: None. SEDATION: None. PRE-ENDOSCOPIC DIAGNOSES: 1. Recent small bowel obstruction with possible stricture of Kock pouch afferent bowel junction. 2. History of proctocolectomy and Kock pouch for ulcerative colitis. POST-ENDOSCOPIC DIAGNOSES: 1. Recent small bowel obstruction with possible stricture of Kock pouch afferent bowel junction. 2. History of proctocolectomy and Kock pouch for ulcerative colitis. ENDOSCOPY PERFORMED: Kock pouch endoscopy. FINDINGS: A normal pouch and valve with a small orifice to the afferent bowel with angulation and torquing preventing the scope from entering. DESCRIPTION OF PROCEDURE: The patient was positioned supine in the GI lab without any anesthesia or sedation given or required. Using a GIF-P140 endoscope, I entered the stoma after removing the indwelling Awan catheter. The tract leading into the tip of the valve was straight and the distance was 8 to 9 cm, normal in this patient. The pouch was distensible and completely normal except for a small opening into the afferent bowel as described above. Withdrawal views confirmed the above findings. After removing the endoscope, I readily inserted a 28-Mongolian Awan catheter into her pouch to decompress it and connected to gravity drainage bag. The patient tolerated the endoscopy well. Mykel Jaime M.D. DR: ANA JOB#: [id number] CC:
--- NOTE | 2019-03-16 19:33 | NUR ---
HAND-OFF: Report given to Mona/Yash.
--- NOTE | 2019-03-16 19:35 | NUR ---
NURSE NOTES: Pt. received from MARLEE Dickerson. Pt. was seen ambulating in hallway, now in bed. AAOx4, on room air, no signs of respiratory distress at this time. IV on right FA asymptomatic, intact and patent. Ileostomy draining well; dressing clean, dry, and intact. Latex allergy sign on door and at head of bed. Aware of new diet order. Bed is low and locked, side rails x2 up, and call light is in reach. Will continue to monitor
[2019-03-16 20:00] VITALS: BP 133/83
--- NOTE | 2019-03-16 21:00 | NUR ---
NURSE NOTES: Ileostomy dressing changed, scant amount of drainage. Stoma bright red. Moisture barrier applied, 4x4, and paper tape.
[2019-03-17] VITALS: BP 121/73
[2019-03-17] MEDS: Cephalexin 500mg cap ORAL SCH ×2 (02:04→09:18)
[2019-03-17 04:00] VITALS: BP 150/76
--- NOTE | 2019-03-17 07:40 | NUR ---
NURSE NOTES: Report received from Yash WHALEN. Patient awake and alert x 4 sitting in high fowlers position in bed. Patient noted to have ileostomy and hannah catheter. Both patent and in tact. 24 saeid saline lock patent in right AC. Cellulitis noted on left AC from old IV insertion. Will continue to monitor site for further erythema and edema. Patient has no complaints at this time. Bed locked and in lowest position. Call light within reach. Will continue to follow plan of care.
--- NOTE | 2019-03-17 07:40 | NUR ---
HAND-OFF: Report given to MARLEE Melchor and Nitin WHALEN.
[2019-03-17 08:00] VITALS: BP 123/88
[2019-03-17] MEDS: Amiodarone 200mg tab ORAL SCH (09:18)
[2019-03-17] MEDS: Pantoprazole Inj IVP SCH (09:18)
--- NOTE | 2019-03-17 09:44 | General Progress Note ---
Progress Note Progress Note tolerating BCIR low residue diet well Abdomen soft, flat, non-tender Kock pouch ileo 840cc/24 hours eating 60% Imp. SBO due to stenosis of afferent bowel at Kock pouch and food indiscretion Atrial fibrillation on admission , resolved Plan: discharge to continue no roughage diet Meds per Cardiology Full discussion re potential need to surgically relieve the stenosis if SBO symptoms recur on current diet Mykel Jaime MD Mar 17, 2019 09:44
--- NOTE | 2019-03-17 09:48 | NUR ---
NURSE NOTES: Patient seen by Doctor Jaime. Doctor Jaime assessed patient and determined Awan could be removed. Awan removed at 0940. Patient instructed to continue diet and self intubate within the next few hours to ensure BCIR continues to work properly with self intubation. Plan is for patient to be discharged this afternoon. Abdomen soft and non distended. Will continue to follow plan of care.
[2019-03-17] MEDS ORDERED: NS Irrig 1000ml ONE (10:45)
--- NOTE | 2019-03-17 11:00 | NUR ---
NURSE NOTES: Called in Amiodarone 200 mg q daily rx per Dr. Temple to [facility] pharmacy in [place] [ ]. Instructed pt to p/u med on her way home; pt verbalized understanding.
[2019-03-17] MEDS ORDERED: AMIODARONE HCL400 M1 ORAL (11:06)
[2019-03-17 11:50] VITALS: BP 120/69
[2019-03-17] MEDS ORDERED: NS 275ml ONE (13:44)
--- NOTE | 2019-03-17 13:45 | NUR ---
NURSE NOTES: Patient discharged home without any health care services. IV removed and ID band removed by Nitin WHALEN. Patient was able to self intubate successfully prior to discharge. Patient left hospital with spouse in own personal car. Witnessed patient leave hospital in stable condition. Patient alert and oriented x 4 upon discharge. Prior to discharge educated patient on signs on symptoms on bowel obstruction. Educated patient to seek medical attention if any of these signs appear. Further more to seek medical attention if patient begins to have issues with self intubation, stoma has swelling or drainage, and if cellulitis on left arm gets any worse. Educated patient to seek immediate medical attention if patient has any sudden change in condition, sudden chest pain, and/or sudden shortness of breath. Educated patient to continue low residue puree diet x 1 week. Educated patient to elevate left arm, apply hot compress as needed, and apply neosporin with a bandage as needed to prevent new infection. Finally, informed patient to continue home medications as prescribed by MD. Prescriptions sent to pharmacy of patients choice. All questions and concerns answered by Nitin WHALEN prior to discharge. Patient signed discharge paperwork and was escorted to hospital exit by Nitin WHALEN. Care for the patient ended at this time.
--- NOTE | 2019-03-19 13:40 | NUR ---
*--* INSURANCE *-* ALL CLINICALS AND REVIEWS HAVE BEEN FAXED TO: [facility] [place]:CONY MARIN REF# [id number] P: [phone] F; [phone]
--- NOTE | 2019-03-19 16:39 | NUR ---
CASE MANAGEMENT: NOTE FAXED DC INSTRUCTION REQUESTED BY [facility] NCM:CONY MARIN REF# [id number] P: [phone] F; [phone]
--- NOTE | 2019-03-20 09:17 | Discharge Summary ---
Discharge Summary Hospital Course Date of Admission Mar 13, 2019 at 01:05 Date of Discharge Mar 17, 2019 at 13:45 Admitting Diagnosis small bowel obstruction Reason for Hospitalization: possible surgical intervention HPI Anne-Marie Freeman is a 58 year old female who was admitted on Mar 13, 2019 at 01: 05 for Bowel Obstruction, and history of Kock pouch continent ileostomy. The patient was admitted as transfer from [facility] as a direct admission to intensive care unit with bowel obstruction and history of Kock pouch continent ileostomy. The patient has a past history of ulcerative colitis and in 1979, she underwent proctocolectomy with conventional Eneida ileostomy . In 1980 she undergone conversion to a Kock pouch continent ileostomy. Dr Jaime operated on the patient in 2014, performing a complex revision of her Kock pouch with creation of a new valve and stoma. She did very well since then with no problems with her pouch. However, on March 09, she ate apples and nuts and the next day had cramping pain, severe nausea, and signs and symptoms of bowel obstruction. She states that for one year she has been having intermittent pain in the left lower quadrant. She was admitted to [facility] and was almost about to have surgery when it was decided to manage her with nasogastric tube non-operatively. Since that time, she has had improvement, but not resolution and request was made to transfer here because of surgeon expertise at [facility] with Kock pouch continent ileostomy. The patient was directly admitted to the intensive care unit and found to be in atrial fibrillation with rapid ventricular response. She had previously been in sinus rhythm. Consultations dr Mejía-IM/cardio Procedures s/p 03/16/[address] Addison More pouch endoscopy. Hospital Course patient admitted as a direct admission for bowel obstruction and history of Kock pouch continent ileostomy patient admitted to intensive care unit and found to be in atrial fibrillation with rapid ventricular response cardiology consult was requested patient was on the IV fluids patient started on heparin drip in view of the atrial fibrillation along with amiodarone drip to help convert to sinus rhythm patient was kept n.p.o. NG tube was connected to low intermittent suction troponin was negative potassium was replace thyroid function was checked and found to be stable Echocardiogram revealed preserved ejection fraction of 65% with no evidence of wall motion abnormality; no evidence of left ventricular hypertrophy right ventricular systolic pressure of 22 28 Setswana Awan catheter was inserted into her Kock pouch, secured with tape, and connected to continuous gravity drainage some stool material came out patient was kept n.p.o. , on IV fluids GI prophylaxis with PPI provided strict intake and output maintained labs were closely followed abdominal x-ray demonstrated single dilated loop of small bowel in the left mid abdomen. NG suction continued small bowel obstruction was resolving , likely food blockage. patient started on trial of clear Ensure. 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 , atrial fibrillation presumably was due to stress of the events leading to hospitalization solar installation supervisor recommended to continue Amiodarone for 1 month and then can be discontinue, if no recurrence no anticoagulation, given short term of atrial fibrillation patient subsequently undergone on 03/15 Kock pouch pouchogram with small bowel series, which revealed suggestion of narrowing of the anastomosis between the distal small bowel and continent ileostomy amount of obstruction was apparently minimal if any thus, pouchogram revealed 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 small bowel obstruction was resolving patient tolerated clear liquid diet patient subsequently undergone pouch endoscopy on 03/16/2019 , which revealed normal pouch with a small area sized to the afferent bowel with angulation preventing the scope from entering 28 Setswana Awan catheter was easily inserted into her pouch to decompress it and connected to gravity drainage bag patient tolerated endoscopy well diet was advanced to full liquid and then to BCIR low residue diet patient subsequently was able to tolerate diet; patient was counseled on no roughage diet full discussion provided regarding potential need to surgically relieve the stenosis of small bowel if symptoms recur on current diet patient clinically stabilized and was ready for discharge FINAL DIAGNOSES 1. Small bowel obstruction, resolving with conservative management. 2. Acute onset atrial fibrillation with rapid ventricular response. 3. History of ulcerative colitis. 4. STATUS POST MULTIPLE ABDOMINAL OPERATIONS: 4.1. Proctocolectomy and Eneida ileostomy in 1979. 4.2. Kock pouch in 1980. 4.3. Complex revision of Kock pouch with creation of new valve and stoma. 4.4. Aspiration of right hydrosalpinx in 2014 . 5. Small bowel obstruction with history of total colectomy and Kock Pouch continent ileostomy -resolved 6. Atrial fibrillation with rapid ventricular response-resolved 7. s/p Kock pouch endoscopy 03/16/19 Discharge Medications Continued Medications: Amiodarone Hcl* (Amiodarone Hcl*) 400 Mg Tablet 200 MG ORAL DAILY, #30 TAB (This prescription has been renewed) Eletriptan Hydrobromide (Relpax) 40 Mg Tablet 40 MG PO, TAB Discharge Condition Upon Discharge: stable Discharge Disposition Patient was discharged home Discharge Instructions Discharge Instructions Special Instructions I have been assigned to complete a D/C Summary on this account. I was not involved in the patient management Radha Baez NP Mar 20, 2019 09:17
--- NOTE | 2019-03-20 09:47 | NUR ---
*--* INSURANCE *-* DISCHARGE SUMMARY HAS BEEN FAXED TO: [facility]:CONY MARIN REF# [id number] P: [phone] F; [phone]
== END 2019-03-17 13:45 | disposition home or self-care (01) | DRG 389 ==
LOC: ICU 03-13 01:05 → 2W 03-14 13:40 → 3E 03-15 14:50
PROC: 0DJD8ZZ Inspection of Lower Intestinal Tract, Via Natural or Artificial Opening Endoscopic (ICD-10-PCS; principal; 2019-03-16 13:05)
DX: K56.609 Unspecified intestinal obstruction, unspecified as to partial versus complete obstruction (principal); L03.114 Cellulitis of left upper limb; Z93.2 Ileostomy status; I48.91 Unspecified atrial fibrillation; E87.6 Hypokalemia; E86.0 Dehydration; Z87.19 Personal history of other diseases of the digestive system
CPT/HCPCS: 36415; 74018; 74270; 80048; 80053; 84439; 84443; 84484; 85007; 85025; 85610; 85730; 93005; 93306; J0282; J7030